=== PATIENT | female | born 1970 | race Caucasian/White ===

== ENCOUNTER 2017-09-26 05:41 | Day surgery (SDC) | payer BC ==
[2017-09-26] MEDS ORDERED: MIDAZOLAM 1 MG/ML 2 ML INJ ×2 (07:38)
[2017-09-26] MEDS ORDERED: FENTAnyl 50 MCG/ML VIAL (07:38)
== END 2017-09-26 14:10 | disposition home or self-care (01) ==
LOC: GIL 05:41
DX: K44.9 Diaphragmatic hernia without obstruction or gangrene (principal); K21.0 Gastro-esophageal reflux disease with esophagitis; K29.60 Other gastritis without bleeding; E03.9 Hypothyroidism, unspecified
CPT/HCPCS: 43239; 87081